=== PATIENT | female | born 1955 ===

== ENCOUNTER 2018-12-12 07:19 | Day surgery (SDC) | payer MEDICARE ==
[2017-01-25 07:48] VITALS: BMI 35.0
[2018-12-12 07:45] VITALS: PULSE 63; RESP 19; TEMP 97.5; O2SAT 99
[2018-12-12] MEDS ORDERED: Propofol 10 mg/ml Inj (20 ML) ONE (08:58)
--- NOTE | 2018-12-12 09:07 | CP.SDSHP ---
Same Day Surgery H & P - History Proposed Procedure: EGD/Biopsy Pre-Op Diagnosis: dyspepsia - Previous Medical/Surgical History Cardiac: Hypertension Endocrine/Metabolic: Diabetes Comments: breast cancer. hyperlipidemia Previous Surgical History: appendectomy. Bilat mastectomy - Allergies Allergies: Allergies No Known Allergies Allergy (Verified 01/25/17 07:41) - Current Medications Current Medications: reviewed, per reconciliation - Physical Exam General Appearance: wdwn nad Vital Signs: Vital Signs 12/12/18 07:40 Temperature 97.5 F L Pulse Rate 63 Respiratory 19 Rate Blood Pressure 149/80 O2 Sat by Pulse 99 Oximetry Mental Status: Alert & Oriented x3 Heart: WNL Lungs: WNL GI: WNL - {Optional Preform as Required} Breast: Other (mastectomy) Abdomen: WNL - Impression Impression: dyspepsia Pt. Evaluated Today:Candidate for Anesthesia & Procedure: Yes - Date & Time Date: 12/12/18 Time: 09:07 Short Stay Discharge - Short Stay Discharge Admitting Diagnosis/Reason for Visit: FUNCTIONAL DYSPEPSIA Disposition: HOME/ ROUTINE Referrals: Juan Wood MD [Primary Care Provider] -
[2018-12-12] MEDS ORDERED: Lactated Ringer's 1,000 ML IV ONE (09:08)
[2018-12-12 09:54] VITALS: BP 118/67
== END 2018-12-12 10:15 | disposition home or self-care (01) ==
LOC: C.ENDO 07:19
PROVIDERS: ATTEND Internal Medicine Gastroenterology
DX: K29.50 Unspecified chronic gastritis without bleeding (principal); K30 Functional dyspepsia; K31.9 Disease of stomach and duodenum, unspecified; I10 Essential (primary) hypertension; E11.9 Type 2 diabetes mellitus without complications; E78.5 Hyperlipidemia, unspecified; K21.9 Gastro-esophageal reflux disease without esophagitis
CPT/HCPCS: 43239; 82948; 88305; 88342; J2001; J2704; J7120